=== PATIENT | male | born 1980 | race Caucasian/White ===

== ENCOUNTER 2019-05-26 18:25 | Emergency (ER) | payer MEDICAID ==
[~2019-05-26] VITALS: Ht 170.2 cm; Wt 79.4 kg
[2019-05-26 18:34] VITALS: BP 137/79
--- NOTE | 2019-05-26 18:50 | NUR ---
DR MURCIA WITH PATIENT FOR EVAL
== END 2019-05-26 19:17 | disposition home or self-care (01) ==
LOC: ER 18:30
DX: Z20.828 Contact with and (suspected) exposure to other viral communicable diseases (principal); R51 Headache